=== PATIENT | male | born 1940 | race Caucasian/White ===

== ENCOUNTER 2018-11-26 10:38 | Outpatient (CLI) | payer OTHER | END 2018-11-26 10:50 | disposition home or self-care (01) | LOC: RAD 10:38 | DX: M54.5 Low back pain (principal) ==

== ENCOUNTER 2019-05-15 08:01 | Outpatient (CLI) | payer OTHER | END 2019-05-15 08:24 | disposition home or self-care (01) | LOC: SONOGRAMA 08:01 → MAMO-SONO 08:15 → SONOGRAMA 08:24 | DX: N28.1 Cyst of kidney, acquired (principal); N40.0 Benign prostatic hyperplasia without lower urinary tract symptoms; M25.562 Pain in left knee ==

== ENCOUNTER 2022-10-18 07:52 | Outpatient (CLI) | payer OTHER | END 2022-10-18 07:54 | disposition home or self-care (01) | LOC: LAB 07:52 | PROVIDERS: ATTEND Internal Medicine Hematology & Oncology | DX: D51.3 Other dietary vitamin B12 deficiency anemia (principal); R04.0 Epistaxis; I10 Essential (primary) hypertension; E78.2 Mixed hyperlipidemia; I25.119 Atherosclerotic heart disease of native coronary artery with unspecified angina pectoris; E03.8 Other specified hypothyroidism; Z72.0 Tobacco use; Z71.6 Tobacco abuse counseling ==

== ENCOUNTER 2022-11-11 08:08 | Outpatient (CLI) | payer OTHER | END 2022-11-11 08:16 | disposition home or self-care (01) | LOC: NUCLEAR 08:08 | PROVIDERS: ATTEND Internal Medicine | DX: I87.2 Venous insufficiency (chronic) (peripheral) (principal); I82.409 Acute embolism and thrombosis of unspecified deep veins of unspecified lower extremity ==

== ENCOUNTER 2023-02-08 09:38 | Outpatient (CLI) | payer OTHER ==
[2023-02-08 10:44] LABS: PH,URINE 7.5 (5.0-8.0); URINE APPEARANCE Clear; URINE BILIRRUBIN Negative (NEGATIVE); URINE BLOOD Negative; URINE COLOR Yellow; URINE GLUCOSE Negative (NEGATIVE); URINE LEUKOCYTE Negative; URINE NITRATE Negative; URINE PROTEIN Negative (NEGATIVE)
[2023-02-08 10:48] LABS: URINE EPITHELIAL CELLS 1.8 uL (0.0-38.8); URINE RBC 48.7 uL (0.0-20.8)
[2023-02-08 11:23] LABS: URINE BACTERIA 3.7 uL (0.0-1933); URINE WBC 1.2 uL (0.0-23.2)
== END 2023-02-08 09:39 | disposition home or self-care (01) ==
LOC: LAB 09:38
DX: Z12.5 Encounter for screening for malignant neoplasm of prostate (principal); R97.20 Elevated prostate specific antigen [PSA]; R30.0 Dysuria

== ENCOUNTER 2023-05-01 10:41 | Outpatient (CLI) | payer OTHER ==
[2023-05-01 11:44] LABS: HEMATOCRIT 41.8 % (39.0-48.0); HEMOGLOBIN 13.9 g/dL (13-16.00); MEAN CELL VOLUME 90.8 fL (80.0-100.00); MEAN CORPUSCULAR HEMOGLOBIN 30.2 pg (27.00-32.0); MEAN CORPUSCULAR HGB CONC 33.3 g/dl (32.0-36.0); PLATELET COUNT 234 K/uL (150-450); RED BLOOD COUNT 4.61 M/uL (4.00-6.00); RED CELL DISTRIBUTION WIDTH 14.5 % (11.5-14.5)
[2023-05-01 12:17] LABS: % SATURACION 37.1 % (20-50); ALBUMIN 2.1 gm/dL (3.4-5.0); BILIRUBIN TOTAL 0.71 mg/dL (0.3-1.2); CALCIUM 9.1 mg/dL (8.5-10.1); CREATININE SERUM 0.89 mg/dL (0.70-1.30); FERRITIN 92.4 NG/ML (26-388); GFR 82.04; GLOBULINA 5.2 G/DL (2.4-3.5); POTASSIUM 3.79 mEq/L (3.5-5.1); PROSTATIC SPECIFIC ANTIGEN 2.42 NG/ML (0.010-4.00); TOTAL PROTEIN 7.3 gm/dL (6.4-8.2)
[2023-05-01 12:51] LABS: INR 0.99; PARTIAL THROMBOPLASTIN TIME 29.1 SECONDS (22.0-34.0); PROTHROMBIN TIME 10.4 SECONDS (9.0-11.5)
[2023-05-01 13:06] LABS: FOLIC ACID > 20.00 ng/ml (4.78-20); VITAMIN D3 25 HYDROXY 40.88 ng/ml (30-120)
[2023-05-02 15:44] LABS: MANUAL PLATELET COUNT 368
[2023-05-02 15:46] LABS: PLATELET ESTIMATE NORMAL (NORMAL)
[2023-05-03 10:11] LABS: ALPHA FETO PROTEIN 3.4 ng/mL (0.0-6.4)
== END 2023-05-01 15:17 | disposition home or self-care (01) ==
LOC: LAB 10:41
PROVIDERS: ATTEND Internal Medicine Hematology & Oncology
DX: D51.3 Other dietary vitamin B12 deficiency anemia (principal); R04.0 Epistaxis; I10 Essential (primary) hypertension; E78.2 Mixed hyperlipidemia; I25.119 Atherosclerotic heart disease of native coronary artery with unspecified angina pectoris; E03.8 Other specified hypothyroidism; Z72.0 Tobacco use; D68.8 Other specified coagulation defects; D50.8 Other iron deficiency anemias; R77.2 Abnormality of alphafetoprotein

== ENCOUNTER 2023-05-12 07:06 | Outpatient (CLI) | payer OTHER | END 2023-05-12 07:09 | disposition home or self-care (01) | LOC: TOM 07:06 | PROVIDERS: ATTEND Internal Medicine Hematology & Oncology | DX: D51.3 Other dietary vitamin B12 deficiency anemia (principal); R04.0 Epistaxis; I10 Essential (primary) hypertension; E78.2 Mixed hyperlipidemia; I25.119 Atherosclerotic heart disease of native coronary artery with unspecified angina pectoris; E03.8 Other specified hypothyroidism; Z72.0 Tobacco use; Z71.6 Tobacco abuse counseling; R97.0 Elevated carcinoembryonic antigen [CEA] ==

== ENCOUNTER 2023-06-23 09:15 | Outpatient (CLI) | payer OTHER | END 2023-06-23 09:16 | disposition home or self-care (01) | LOC: LAB 09:15 | PROVIDERS: ATTEND Internal Medicine Hematology & Oncology | DX: C62.12 Malignant neoplasm of descended left testis (principal); D51.3 Other dietary vitamin B12 deficiency anemia; R04.0 Epistaxis; I10 Essential (primary) hypertension; E78.2 Mixed hyperlipidemia; I25.119 Atherosclerotic heart disease of native coronary artery with unspecified angina pectoris; E03.8 Other specified hypothyroidism; Z72.0 Tobacco use; Z71.6 Tobacco abuse counseling; R97.8 Other abnormal tumor markers; E83.52 Hypercalcemia; E21.0 Primary hyperparathyroidism; R97.0 Elevated carcinoembryonic antigen [CEA] ==

== ENCOUNTER 2023-11-11 09:02 | Outpatient (CLI) | payer OTHER ==
[2023-11-11 10:38] LABS: URINE APPEARANCE Clear; URINE BILIRRUBIN Negative (NEGATIVE); URINE BLOOD Negative; URINE COLOR Yellow; URINE GLUCOSE Negative (NEGATIVE); URINE KETONE Trace (NEGATIVE); URINE LEUKOCYTE Negative; URINE NITRATE Negative; URINE PROTEIN Negative (NEGATIVE)
[2023-11-11 10:41] LABS: URINE RBC 31.4 uL (0.0-20.8); URINE WBC 4.3 uL (0.0-23.2)
[2023-11-11 11:19] LABS: CALCIUM 8.8 mg/dL (8.5-10.1); CREATININE SERUM 0.82 mg/dL (0.70-1.30); GFR 90.17; POTASSIUM 4.18 mEq/L (3.5-5.1); PROSTATIC SPECIFIC ANTIGEN 2.46 NG/ML (0.010-4.00)
[2023-11-11 11:27] LABS: URINE EPITHELIAL CELLS 0.6 uL (0.0-38.8)
== END 2023-11-11 09:12 | disposition home or self-care (01) ==
LOC: LAB 09:02
PROVIDERS: ATTEND Urology
DX: N40.0 Benign prostatic hyperplasia without lower urinary tract symptoms (principal); R21 Rash and other nonspecific skin eruption; N52.02 Corporo-venous occlusive erectile dysfunction; Z12.5 Encounter for screening for malignant neoplasm of prostate

== ENCOUNTER → 2023-11-29 08:22 | Outpatient (CLI) | payer OTHER ==
[2023-11-29 09:30] LABS: URINE APPEARANCE Clear; URINE BILIRRUBIN Negative (NEGATIVE); URINE BLOOD Trace; URINE COLOR Yellow; URINE GLUCOSE Negative (NEGATIVE); URINE KETONE Negative (NEGATIVE); URINE LEUKOCYTE Negative; URINE NITRATE Negative; URINE PROTEIN Negative (NEGATIVE)
[2023-11-29 09:35] LABS: URINE RBC 38.9 uL (0.0-20.8)
[2023-11-29 10:12] LABS: URINE BACTERIA 3.7 uL (0.0-1933); URINE EPITHELIAL CELLS 0.7 uL (0.0-38.8); URINE WBC 1.6 uL (0.0-23.2)
== END | disposition home or self-care (01) ==
LOC: LAB 08:22
PROVIDERS: ATTEND Urology
DX: R31.21 Asymptomatic microscopic hematuria (principal); N52.02 Corporo-venous occlusive erectile dysfunction; R21 Rash and other nonspecific skin eruption; Z12.5 Encounter for screening for malignant neoplasm of prostate

== ENCOUNTER 2023-11-29 09:43 | Outpatient (CLI) | payer OTHER ==
[2023-11-29 11:33] LABS: CREATININE SERUM 0.82 mg/dL (0.70-1.30)
== END 2023-11-29 14:14 | disposition home or self-care (01) ==
LOC: LAB 09:43
PROVIDERS: ATTEND Radiology Diagnostic Radiology
DX: R10.30 Lower abdominal pain, unspecified (principal)

== ENCOUNTER 2023-11-30 09:56 | Outpatient (CLI) | payer OTHER | END 2023-11-30 10:04 | disposition home or self-care (01) | LOC: TOM 09:56 | PROVIDERS: ATTEND Urology | DX: R21 Rash and other nonspecific skin eruption (principal); Z12.5 Encounter for screening for malignant neoplasm of prostate; R31.21 Asymptomatic microscopic hematuria; N52.02 Corporo-venous occlusive erectile dysfunction ==

== ENCOUNTER → 2024-05-13 08:12 | Outpatient (CLI) | payer OTHER ==
[2024-05-13 09:12] LABS: HEMATOCRIT 39.8 % (39.0-48.0); HEMOGLOBIN 13.7 g/dL (13-16.00); MEAN CELL VOLUME 92.3 fL (80.0-100.00); MEAN CORPUSCULAR HEMOGLOBIN 31.7 pg (27.00-32.0); MEAN CORPUSCULAR HGB CONC 34.4 g/dl (32.0-36.0); PLATELET COUNT 220 K/uL (150-450); RED BLOOD COUNT 4.31 M/uL (4.00-6.00); RED CELL DISTRIBUTION WIDTH 13.9 % (11.5-14.5)
[2024-05-13 10:25] LABS: PROSTATIC SPECIFIC ANTIGEN 2.75 NG/ML (0.010-4.00); T4 FREE 0.8 NG/ML (0.76-1.46)
[2024-05-13 10:33] LABS: TSH 6.22 uIU/mL (0.358-3.74)
== END | disposition home or self-care (01) ==
LOC: LAB 08:12
DX: Z12.5 Encounter for screening for malignant neoplasm of prostate (principal); N18.2 Chronic kidney disease, stage 2 (mild); I13.10 Hypertensive heart and chronic kidney disease without heart failure, with stage 1 through stage 4 chronic kidney disease, or unspecified chronic kidney disease; E78.49 Other hyperlipidemia; N40.1 Benign prostatic hyperplasia with lower urinary tract symptoms; E03.9 Hypothyroidism, unspecified; R35.0 Frequency of micturition

== ENCOUNTER 2024-05-22 08:02 | Outpatient (CLI) | payer OTHER | END 2024-05-22 08:03 | disposition home or self-care (01) | LOC: NUCLEAR 08:02 | DX: I13.10 Hypertensive heart and chronic kidney disease without heart failure, with stage 1 through stage 4 chronic kidney disease, or unspecified chronic kidney disease (principal); I70.0 Atherosclerosis of aorta; I25.790 Atherosclerosis of other coronary artery bypass graft(s) with unstable angina pectoris ==

== ENCOUNTER 2024-05-22 10:33 | Outpatient (CLI) | payer OTHER | END 2024-05-22 10:38 | disposition home or self-care (01) | LOC: RAD 10:33 | DX: I70.0 Atherosclerosis of aorta (principal); I25.790 Atherosclerosis of other coronary artery bypass graft(s) with unstable angina pectoris; I13.10 Hypertensive heart and chronic kidney disease without heart failure, with stage 1 through stage 4 chronic kidney disease, or unspecified chronic kidney disease ==